=== PATIENT | female | born 1985 | race Two or more races ===

== ENCOUNTER 2021-05-13 17:57 | Inpatient (IN) | payer MEDICAID ==
[~2021-05-13] VITALS: Ht 149.9 cm; Wt 66.2 kg
[2021-05-13] MEDS: MORPHINE SULFATE INJ 2 MG/ML DISP.SYRIN IV ONE ×2 (18:30→19:30)
[2021-05-13] MEDS ORDERED: IV NS 0.9% 1,000 ML BAG IV ONE (18:30)
--- NOTE | 2021-05-13 18:30 | NUR ---
LOW ABDOMINAL PAIN RADIATING TO BACK X 4 DAYS,(+) NAUSEA/VOMITING. AMBULATORY, IN PAIN 11/16
--- NOTE | 2021-05-13 18:40 | NUR ---
APPLICATION SUPPORT TECHNICIAN. ON BED SIDE BLOOD DRAWN. URINE SAMPLE SENT TO LAB
[2021-05-13] MEDS ORDERED: ONDANSETRON HCL/PF 4 MG/2 ML VIAL ONE ×2 (19:23→22:38)
[2021-05-13] MEDS ORDERED: KETOROLAC TROMETHAMINE 15 MG/ML VIAL ONE (19:23)
[2021-05-13] MEDS ORDERED: MORPHINE SULFATE INJ 4 MG/ML DISP.SYRIN ONE (19:24)
[2021-05-13] MEDS ORDERED: LEVETIRACETAM (500MG) 1,000 MG in IV NS 0.9% 100 ML IV SCH (19:30)
[2021-05-13] MEDS ORDERED: KETOROLAC TROMETHAMINE INJ 30 MG/ML VIAL IV ONE (19:30)
[2021-05-13] MEDS ORDERED: ONDANSETRON HCL/PF 4 MG/2 ML VIAL IVP ONE ×2 (19:30→23:00)
[2021-05-13 19:32] LABS: ALBUMIN 3.4 g/dL (3.4-5.0); BILIRUBIN,DIRECT 0.1 mg/dL (0.0-0.2); BILIRUBIN,TOTAL 0.2 mg/dL (0.2-1.0); CALCIUM, SERUM 8.9 mg/dL (8.5-10.1); CREATININE 0.6 mg/dL (0.6-1.3); POTASSIUM 3.8 mmol/L (3.5-5.1); TOTAL PROTEIN, SERUM 6.8 g/dL (6.4-8.2)
[2021-05-13 19:41] LABS: BASOPHILS % (AUTO) 0.4 % (0.0-2.0); EOSINOPHILS % (AUTO) 1.8 % (0.0-6.0); HEMATOCRIT 34 % (33-45); LYMPHOCYTES % (AUTO) 27.2 % (20.0-44.0); MEAN CORPUSCULAR HGB CONC 32 g/dl (31.0-36.0); MEAN CORPUSCULAR VOLUME 85 fL (82-100); MONOCYTES # (AUTO) 0.5 K/uL (0.1-1.30); MONOCYTES % (AUTO) 7.2 % (2.0-12.0); NEUTROPHILS # (AUTO) 4.6 K/uL (1.8-8.9); NEUTROPHILS % (AUTO) 63.4 % (43.0-81.0); PLATELET COUNT (AUTO) 415 K/uL (150-450); RED BLOOD CELL COUNT(AUTO) 4.05 MIL/uL (4.0-5.2); WHITE BLOOD COUNT (AUTO) 7.3 K/uL (4.3-11.0)
[2021-05-13] MEDS ORDERED: LEVETIRACETAM (500MG) 500 MG/5 ML VIAL IV ONE (19:41)
[2021-05-13] MEDS ORDERED: FENTANYL PF 100MCG/2ML AMPUL ONE (19:58)
[2021-05-13] MEDS ORDERED: FENTANYL PF 100MCG/2ML AMPUL IV ONE (20:00)
[2021-05-13 20:09] LABS: BILIRUBIN,URINE NEGATIVE (NEGATIVE); COLOR,URINE YELLOW (YELLOW); LEUKOCYTE ESTERASE ,URINE NEGATIVE (NEGATIVE); NITRITE, URINE NEGATIVE (NEGATIVE); PROTEIN,URINE NEGATIVE (NEGATIVE); UGLUCOSE NEGATIVE (NEGATIVE); UROBILINOGEN,URINE 0.2 EU/dL (0.2)
[2021-05-13] MEDS ORDERED: diphenhydrAMINE HCL 50 MG/ML VIAL ONE (20:13)
[2021-05-13] MEDS ORDERED: diphenhydrAMINE HCL 50 MG/ML VIAL IV ONE (20:30)
[2021-05-13] MEDS ORDERED: HYDROMORPHONE 1 MG/1 ML DISP.SYRIN ONE (22:35)
--- NOTE | 2021-05-13 22:45 | NUR ---
COVID SWAB COLLECTED AND SENT TO LAB
[2021-05-13] MEDS ORDERED: HYDROMORPHONE INJ 2 MG/ML DISP.SYRIN IV ONE (23:00)
[2021-05-13] MEDS ORDERED: PROCHLORPERAZINE EDISYLATE 10 MG/2 ML VIAL ONE (23:35)
[2021-05-14] MEDS ORDERED: PROCHLORPERAZINE EDISYLATE 10 MG/2 ML VIAL IVP ONE
[2021-05-14] MEDS ORDERED: IV NS 0.9% 1,000 ML IV PRN (00:30)
[2021-05-14] MEDS ORDERED: ONDANSETRON HCL/PF 4 MG/2 ML VIAL IVP PRN (00:30)
[2021-05-14] MEDS ORDERED: ACETAMINOPHEN 325 MG TABLET PO PRN (00:30)
[2021-05-14] MEDS ORDERED: Z GUARD REMEDY 4 OZ OINT TP PRN (00:30)
[2021-05-14] MEDS ORDERED: MAG HYDROX/AL HYDROX/SIMETH 30 ML UDC PO PRN (00:30)
[2021-05-14] MEDS ORDERED: LORAZEPAM INJ 2 MG/ML VIAL IV PRN (00:30)
[2021-05-14] MEDS ORDERED: MAGNESIUM HYDROXIDE 30 ML UDC PO PRN (00:30)
--- NOTE | 2021-05-14 00:50 | NUR ---
PT sleeping comofortably breathing even and unlabored tolerating room air well. remains connected to monitor and vital signs remain stable.
--- NOTE | 2021-05-14 03:48 | NUR ---
room 320
--- NOTE | 2021-05-14 04:09 | NUR ---
REPORT GIVEN TO LEIGH ANN
--- NOTE | 2021-05-14 04:22 | NUR ---
PT TRANSPORTED TO ROOM 320 WITHOUT INCIDENT
[2021-05-14 04:48] VITALS: BP 84/35
--- NOTE | 2021-05-14 06:21 | NUR ---
END SHIFT NOTES: ADMITTED TO THE FLOOR 04:30 LAST NIGHT AMBULATED FROM THE [facility] TO THE BED NURSE STANDBY STEADY ON HER LEGS RESP EVEN AND UNLABORED AFTER BEING ADMITTED WENT RIGHT TO SLLEP RESP EVEN AND UNLABORED IV FLUIDS STARTED B/P 84/35 AROUSES EASILY AND ALERT RESP EVEN AND UNLABORED BED ALARM GENERAL SERVICE OFFICER LIGHT WITHIN HER REACH
--- NOTE | 2021-05-14 06:26 | NUR ---
ADMITTED FROM THE ER THIS AM AMBULATED TO THE BED FROM THE [facility] NURSE STANDBY STEADY GAIT B/P 84/35 AFTER BEING ADMITTED FELL RIGHT TO SLEEP RESP EVEN AND UNLABORED IV FLUIDS STARTED NO C/O PAIN AT THIS TIME
[2021-05-14] MEDS ORDERED: PANTOPRAZOLE 40 MG TABLET.DR PO SCH (07:30)
--- NOTE | 2021-05-14 07:49 | NUR ---
RN OPENING NOTES Patient seen comfortably lying in bed, no apparent distress noted, respirations even and unlabored, no shortness of breath, denies any pain or discomfort at this time, no grimacing. Call light left within reach, safety precautions in place, brakes locked, side rails up X 2, will monitor closely for any changes.
[2021-05-14 08:00] VITALS: BP 97/52
[2021-05-14] MEDS ORDERED: LEVETIRACETAM (500MG) 1,000 MG in IV NS 0.9% 100 ML IV SCH (08:00)
[2021-05-14 08:04] LABS: BASOPHILS % (AUTO) 0.7 % (0.0-2.0); EOSINOPHILS % (AUTO) 2.8 % (0.0-6.0); HEMATOCRIT 30 % (33-45); HEMOGLOBIN 9.9 g/dL (11.5-14.8); LYMPHOCYTES # (AUTO) 1.8 K/uL (0.8-4.8); MEAN CORPUSCULAR HGB CONC 33 g/dl (31.0-36.0); MEAN CORPUSCULAR VOLUME 85 fL (82-100); MONOCYTES # (AUTO) 0.4 K/uL (0.1-1.30); MONOCYTES % (AUTO) 8.4 % (2.0-12.0); NEUTROPHILS # (AUTO) 2.4 K/uL (1.8-8.9); NEUTROPHILS % (AUTO) 50.1 % (43.0-81.0); PLATELET COUNT (AUTO) 350 K/uL (150-450); RED BLOOD CELL COUNT(AUTO) 3.51 MIL/uL (4.0-5.2); WHITE BLOOD COUNT (AUTO) 4.7 K/uL (4.3-11.0)
[2021-05-14] MEDS: HYDROMORPHONE 1 MG/1 ML DISP.SYRIN IV PRN ×2 (08:13→12:14)
[2021-05-14 08:17] LABS: ALBUMIN 2.7 g/dL (3.4-5.0); BILIRUBIN,TOTAL 0.4 mg/dL (0.2-1.0); CALCIUM, SERUM 8.1 mg/dL (8.5-10.1); CREATININE 0.8 mg/dL (0.6-1.3); POTASSIUM 3.8 mmol/L (3.5-5.1); TOTAL PROTEIN, SERUM 5.5 g/dL (6.4-8.2)
[2021-05-14 10:32] LABS: IRON, SERUM 70 ug/dl (50-175); TOTAL IRON BINDING CAPACITY 341 ug/dl (250-450)
--- NOTE | 2021-05-14 14:32 | NUR ---
DC Planning: SW received call from pt.'s nurseDianelys stating that this pt. is requesting to leave AMA and needs assistance with transpotation. SW met with pt. bedside. The pt. is alert & oriented and makes appropriate eye contact. The pt. has normal speech & thought process. Pt. denies SI/HI and denies hallucinations. Pt. stated, "I received a call that my grandfather has passed. I need to get to [facility] and someone will pick me up there". Pt. was agreeable to taking the bus. SW provided TAP card and printed bus route to [facility] [[address] [place] [address] ; ]. Pt. accepted it. NurseDianelys is aware.
--- NOTE | 2021-05-14 14:55 | NUR ---
Patient seen comfortably lying in bed, no nausea and vomiting, pain medication given per MD order as needed when non pharmacological measures ineffective noted with help. Patient is on IV fluids for hydration, tolerating well. Patient stated that she wants to leave the hospital because someone from her family and she needs to be there as soon as possible explained risks and benefits to patient thrice, however patient still prefers to leave. Patient alert, oriented X 4, able to make needs known and can follow commands. Instructed patient to follow up with her primary MD and to go in emergency room in case of the situation. Patient signed AMA paper, peripheral IV line on left antecubital and patients identification wristband was removed. Patient also asked if its possible for someone to take her to the [facility], she added that she does not have any money, she has a [employer] application on her phone but is not connected to any credit card. cafeteria worker consulted regarding situation, bus tap card and printed direction going to the [facility] [employer] provided to patient, verbalized understanding and gratitude. Surgical mask given to patient, verbalized gratitude. RN assisted patient to the [facility] left unit at 1455pm. Hospitalist, charge nurse and nursing supervisor motor vehicle assembly made aware of the situation.
--- NOTE | 2021-05-14 14:56 | NUR ---
Patient seen comfortably lying in bed, no nausea and vomiting, pain medication given per MD order as needed when non pharmacological measures ineffective noted with help. Patient is on IV fluids for hydration, tolerating well. Patient stated that she wants to leave the hospital because someone from her family and she needs to be there as soon as possible explained risks and benefits to patient thrice, however patient still prefers to leave. Patient signed inventory list, all belongings taken by patient. Patient alert, oriented X 4, able to make needs known and can follow commands. Instructed patient to follow up with her primary MD and to go in emergency room in case of the situation. Patient signed AMA paper, peripheral IV line on left antecubital and patients identification wristband was removed. Patient also asked if its possible for someone to take her to the [email or web address], she added that she does not have any money, she has a [employer] application on her phone but is not connected to any credit card. spring floor service worker consulted regarding situation, bus tap card and printed direction going to the [facility] provided to patient, verbalized understanding and gratitude. Surgical mask given to patient, verbalized gratitude. RN assisted patient to the [facility] left unit at 1455pm. Hospitalist, charge nurse and nursing felling bucking supervisor made aware of the situation.
== END 2021-05-14 15:00 | disposition left against medical advice (07) | DRG 422 ==
LOC: ER 17:57 → MED 05-14 03:50
PROVIDERS: ADMIT Nurse Practitioner Family; ATTEND Nurse Practitioner Family
DX: E86.0 Dehydration (principal); D64.9 Anemia, unspecified; F17.200 Nicotine dependence, unspecified, uncomplicated; G40.909 Epilepsy, unspecified, not intractable, without status epilepticus; N20.0 Calculus of kidney; Z20.822 Contact with and (suspected) exposure to COVID-19; Z88.8 Allergy status to other drugs, medicaments and biological substances; Z53.29 Procedure and treatment not carried out because of patient's decision for other reasons; Z79.899 Other long term (current) drug therapy; Z90.49 Acquired absence of other specified parts of digestive tract; Z98.1 Arthrodesis status; Z66 Do not resuscitate
CPT/HCPCS: 36415; 70486-TC; 71045-TC; 76700-TC; 76856-TC; 80048-TC; 80053-TC; 80076-TC; 83540-TC; 83690-TC; 84703-TC; 85025-TC; 87081-TC; C9803; G0378; J0780; J1170; J1200; J1885; J1953; J2270; J2405; J3010; J7030